=== PATIENT | male | born 1955 | race Caucasian/White ===

== ENCOUNTER 2017-05-20 14:24 | Observation (INO) | payer OTHER ==
[~2017-05-20] VITALS: Ht 175.3 cm; Wt 92.9 kg
--- NOTE | ~2017-05-20 | EKG ---
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1955 Requested By: Claudio Hernandez Order Number: [id number] MD: Juancarlos Jacobo Measurements Intervals [place] Rate: 47 P: 49 MD: 163 QRS: 47 QRSD: 104 T: 53 QT: 462 QTc: 409 Interpretive Statements Sinus bradycardia Low voltage, extremity leads Nonspecific ST segment abnormality No previous ECG available for comparison Electronically Signed On 05-21-2017 10:55:35 CDT by Juancarlos Jacobo [email or web address] <ELECTRONICALLY SIGNED> By: Juancarlos Jacobo MD, [facility] 05/21/17 1055 0628 0628 Juancarlos Jacobo MD, FACC /EPI
--- NOTE | ~2017-05-20 | EKG ---
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1955 Requested By: Denver Dominguez Order Number: [id number] MD: Juancarlos Jacobo Measurements Intervals [place] Rate: 54 P: 47 ND: 167 QRS: 37 QRSD: 91 T: 59 QT: 410 QTc: 389 Interpretive Statements Sinus bradycardia Low voltage, extremity leads Nonspecific ST segment abnormality No previous ECG available for comparison Electronically Signed On 05-21-2017 10:45:11 CDT by Juancarlos Jacobo [email or web address] <ELECTRONICALLY SIGNED> By: Juancarlos Jacobo MD, [facility] 05/21/17 1045 1425 1425 Juancarlos Jacobo MD, FACC /EPI
--- NOTE | ~2017-05-20 | EXE ---
[facility] [place] [address] STRESS ECHOCARDIOGRAM Name: SUSANA BOYD Room #: 203-P ADM IN M.R.#: [id number] Admission: 05/20/17 Attend Phys: Jacy Menchaca Discharge: Date of : 51 Date of Service: 05/21/17 [facility] Report #: [id number] THIS REPORT FOR: //name// APPROVED REPORT Exam: Stress Echocardiogram Indication: Chest pain Patient Location: Echo lab Stress Nurse: Ruchi Johnson RN Room #: 203 Status: routine Ht: 5 ft 9 in HR: 50 bpm BP: 126/78 mmHg Medical History Medical History: CAD s/p CABG, Diabetic Insulin, Hyperlipidemia Allergies: No known drug allergies Cardiac Risk Factors: HTN, Hyperlipidemia, DM, FHX of CAD, Smoking Previous Cardiac Procedures: CABGPCI Exercise History: Physically active Procedure The patient underwent an Exercise Stress Test using the Gunnar Protocol. Blood pressure, heart rate, and EKG were monitored. An Echocardiogram was performed by mechanical laboratory technician in four stages in quad fashion. At peak stress, four selected images were obtained and placed side by side with resting images for comparison. Stress Test Details Stress Test: Exercise stress testing was performed using a Gunnar protocol. HR Resting HR: 50 bpm Max Heart Rate (APMHR): 157 bpm Max HR Achieved: 110 bpm Target HR (85% APMHR): 133 bpm % of APMHR: 70 Recovery HR: 58 bpm HR response to stress: Blunted HR response to stress due to Beta pierre BP Resting BP: 126/78 mmHg Max BP: 130/70 mmHg [facility] [address] [place] [address] STRESS ECHOCARDIOGRAM Name: OLIVERSUSANA GAY Room #: 203-P [facility]#: [id number] Admission: 05/20/17 Attend Phys: Jacy Menchaca Discharge: Date of : 51 Date of Service: 05/21/17 1024 Report #: [id number] Recovery BP: 110/60 mmHg ECG Clinical Reason for Termination: Maximal effort Exercise duration: 12 min sec Highest Stage Achieved: Stage 4: 4.2 mph at 16% grade. Exercise capacity: 13.7 METs Overall Exercise Capacity for Age: Good Pre-Stress Echo The resting Echocardiogram showed normal left ventricular contractility with an estimated Ejection Fraction of about 55%. Post-Stress Echo The stress Echocardiogram showed normal left ventricular contractility with an estimated Ejection Fraction of about 65%. Clinical Normal augmentation of myocardial wall segments using a 17 segment model. Conclusion Clinical Response: Non-ischemic Exercise Capacity: Superior Stress ECG Response: Non-ischemic Stress Echo Images: Non-ischemic No prior study available for comparison. Other Information Study Quality: Adequate <ELECTRONICALLY SIGNED> By: Drew Cadet MD, FACC 05/21/17 1024 1024 1024 Drew Cadet MD, FACC /INF
--- NOTE | ~2017-05-20 | H ---
[facility] [place] [address] HISTORY AND PHYSICAL Name: SUSANA BOYD Room #: 203-P [facility] IN ..#: [id number] Admission: 05/20/17 Attend Phys: Claudio Hernandez MD Discharge: 05/21/17 Date of : 51 Report #: [id number] THIS REPORT FOR: //name// CC: Clark Hernandez MD DATE OF SERVICE: 05/20/2017 CHIEF COMPLAINT: Chest pain. HISTORY OF PRESENT ILLNESS: The patient is a 61-year-old male with history of coronary artery disease status post CABG in 2002, recent stent at [facility] 2 months ago, presented to the Emergency Room complaining of chest pain. Symptoms have been ongoing over the last 3 days. He has been on and off. He describes as a sharp pain just below his left breast with occasional radiation to his neck. He has been also with some mild shortness of breath. No dizziness. No fever or chills. No cough or expectoration. No lower extremity swelling. PAST MEDICAL HISTORY: Significant for coronary artery disease, CABG x 6 in 2002, stent in Spring 2016, diabetes and bilateral shoulder surgery. ALLERGIES: No known drug allergy. HOME MEDICATIONS: Reviewed, please look at the nursing documentation. SOCIAL HISTORY: He still smokes 1-1/2 packs per day. No history of alcohol abuse or illicit drug abuse. FAMILY HISTORY: Significant for hypertension and coronary artery disease. REVIEW OF SYSTEMS: CONSTITUTIONAL: No recent weight loss, weight gain. EYES: No change in vision. THROAT: Denies any sore throat. CARDIOVASCULAR: As above. RESPIRATORY: No cough or expectoration. GASTROINTESTINAL: No nausea, vomiting, abdominal pain. GENITOURINARY: No dysuria, hematuria. NEUROLOGIC: No focal numbness or weakness of the extremities. PSYCHIATRIC: No anxiety or depression. A 12-point review of system is negative other than the positive and negative dictated in the history of present illness and the review of system. [facility] [address] [place] [address] HISTORY AND PHYSICAL Name: SUSANA BOYD Minna Room #: 203-[facility] IN ..#: [id number] Admission: 05/20/17 Attend Phys: Claudio Hernandez MD Discharge: 05/21/17 Date of : 51 Report #: [id number] PHYSICAL EXAMINATION: VITAL SIGNS: Reveal blood pressure 104/70, heart rate of 50 per minute, afebrile. GENERAL: The patient is awake and alert, not in acute respiratory distress. EYES: Pupils equal, reactive to light, nonicteric conjunctivae. NECK: Supple, no JVD, no bruit, no lymphadenopathy. CARDIOVASCULAR SYSTEM: S1, S2, negative S3, no murmur. CHEST: Bilateral air entry present. Clear on auscultation. ABDOMEN: Soft, bowel sounds present, no mass, no organomegaly, no tenderness. PERIPHERY: No pedal edema. No calf tenderness. Dorsalis pedis 1+. NEUROLOGICAL: No gross motor or sensory deficit. LABORATORY DATA: Reviewed. EKG showed sinus rhythm, low voltage. Nonspecific ST segment T-wave changes. Troponin has been negative so far. White count is 5.8 and normal hemoglobin, hematocrit and platelets. His BUN and creatinine are 25 and 1.0. IMAGING: Chest x-ray showed no acute abnormality. ASSESSMENT AND PLAN: 1. Unstable angina. The patient will be treated with aspirin, Plavix and beta pierre and Lovenox. We will consult Cardiology. We will obtain echocardiogram. We will do serial troponin. We will check lipids in the morning. We will try to obtain records from [facility]. We will keep him n.p.o. after midnight if he needs any cardiac intervention. 2. Coronary artery disease status post coronary artery bypass graft, status post stent 2 months ago. 3. Dyslipidemia. We will check his lipids in the morning. 4. Deep venous thrombosis prophylaxis, on Lovenox. 5. Tobaccoism. The patient was strongly advised to stop smoking. Treatment plan has been explained to the patient in detail. <ELECTRONICALLY SIGNED> By: Claudio Hernandez MD 05/21/17 1320 26 46 Claudio Hernandez MD /nt
[2017-05-20 14:29] VITALS: BP 107/73
[2017-05-20] MEDS ORDERED: BISOPROLOL FUMAR5 MG PO (14:39)
[2017-05-20] MEDS ORDERED: GLYBURIDE 2.52.5 M1 PO (14:39)
[2017-05-20] MEDS ORDERED: CLOPIDOGREL75 MG PO (14:40)
[2017-05-20 14:58] LABS: ANION GAP 9 mmol/L (7-16); BUN 25 mg/dL (7-18); CALCIUM 8.7 mg/dL (8.5-10.1); CHLORIDE 104 mmol/L (98-107); CO2 27 mmol/L (21-32); GLUCOSE 127 mg/dL (74-106); POTASSIUM 4.1 mmol/L (3.5-5.1); SODIUM 140 mmol/L (136-145)
[2017-05-20 14:59] LABS: ABSOLUTE NEUTROPHILS 2.5 thou/uL (1.4-8.2); BASOPHILS 1.4 % (0.0-2.0); EOSINOPHILS 2.5 % (0.0-3.0); HEMATOCRIT 42.4 % (42.0-52.0); HEMOGLOBIN 14.5 gm/dL (14.0-18.0); LYMPHOCYTES 45.1 % (24.0-44.0); MCH 31.4 pg (26.0-34.0); MCHC 34.3 g/dL (28.0-37.0); MCV 91.7 fL (80.0-100.0); MONOCYTES 8.2 % (1.0-8.0); PLATELET COUNT 205 thou/uL (150-400); POLYS 42.8 % (36.0-66.0); RBC 4.62 mil/uL (4.50-6.00); RDW 12.9 % (10.5-14.5); WBC 5.8 thou/uL (4.0-11.0)
[2017-05-20 15:06] LABS: MANUAL DIFF NO
[2017-05-20 15:11] LABS: TROPONIN-I < 0.04 ng/mL (<0.04-0.07)
[2017-05-20 18:07] VITALS: BP 104/73
[2017-05-20 20:48] VITALS: BP 103/63
[2017-05-20] MEDS ORDERED: ASPIR-TRIN325 MG PO (22:16)
[2017-05-20] MEDS ORDERED: VITAMIN C500 M1 PO (22:16)
[2017-05-20] MEDS ORDERED: ATORVASTATIN CA40 MG PO (22:17)
[2017-05-20] MEDS ORDERED: NEXIUM40 MG PO (22:17)
[2017-05-20] MEDS ORDERED: TRICOR145 MG PO (22:18)
[2017-05-20] MEDS ORDERED: ZETIA10 MG PO (22:18)
[2017-05-20] MEDS ORDERED: IBUPROFEN 800800 M1 PO (22:19)
[2017-05-20] MEDS ORDERED: ISOSORBIDE MONO60 M1 PO (22:20)
[2017-05-20] MEDS ORDERED: LISINOPRIL5 MG PO (22:21)
[2017-05-20] MEDS ORDERED: ATIVAN1 MG PO (22:21)
[2017-05-20] MEDS ORDERED: NITROGLYCERIN0.4 MG SUBLING (22:22)
[2017-05-20] MEDS ORDERED: XARELTO20 MG PO (22:23)
[2017-05-20] MEDS ORDERED: OMEGA-31000 M1 PO (22:23)
[2017-05-20] MEDS ORDERED: FLOMAX0.4 MG PO (22:24)
[2017-05-20] MEDS ORDERED: VENLAFAXIN75 MG/1 T2 PO (22:25)
[2017-05-20 23:28] VITALS: BP 97/63
[2017-05-21 05:05] VITALS: BP 110/66
[2017-05-21 06:17] LABS: ABSOLUTE NEUTROPHILS 2.4 thou/uL (1.4-8.2); BASOPHILS 1.3 % (0.0-2.0); EOSINOPHILS 3.3 % (0.0-3.0); HEMOGLOBIN 15.2 gm/dL (14.0-18.0); LYMPHOCYTES 44.5 % (24.0-44.0); MCH 31.8 pg (26.0-34.0); MCHC 34.7 g/dL (28.0-37.0); MCV 91.7 fL (80.0-100.0); MONOCYTES 7.9 % (1.0-8.0); PLATELET COUNT 186 thou/uL (150-400); RBC 4.79 mil/uL (4.50-6.00); RDW 12.8 % (10.5-14.5); WBC 5.5 thou/uL (4.0-11.0)
[2017-05-21 06:19] LABS: MANUAL DIFF NO
[2017-05-21 06:34] LABS: ANION GAP 7 mmol/L (7-16); BUN 22 mg/dL (7-18); CALCIUM 8.8 mg/dL (8.5-10.1); CHLORIDE 105 mmol/L (98-107); CHOLESTEROL 144 mg/dL (<200); CO2 28 mmol/L (21-32); GLUCOSE 103 mg/dL (74-106); HDL CHOLESTEROL 40 mg/dL (>40); LDL CHOLESTEROL 80 mg/dL (<100); MAGNESIUM 2.1 mg/dL (1.8-2.4); POTASSIUM 4.4 mmol/L (3.5-5.1); SERUM ASSESSMENT Clear; SODIUM 140 mmol/L (136-145); TC:HDL 3.6 Ratio (Not establshd); TRIGLYCERIDE 123 mg/dL (<150); TROPONIN-I < 0.04 ng/mL (<0.04-0.07); VLDL 25 mg/dL (<40)
[2017-05-21 07:30] VITALS: BP 104/68
[2017-05-21 10:30] VITALS: BP 104/68
[2017-05-21 11:41] VITALS: BP 104/68
[2017-05-22 05:08] LABS: GLYCOHEMOGLOBIN (HGB A1C) 5.9 % (4.8-5.6)
== END 2017-05-21 11:00 | disposition home or self-care (01) ==
LOC: ER 14:24 → EROBS 17:36 → 2N 17:36
PROVIDERS: Emergency Medicine; Internal Medicine
DX: I25.110 Atherosclerotic heart disease of native coronary artery with unstable angina pectoris (principal); I10 Essential (primary) hypertension; E78.5 Hyperlipidemia, unspecified; E11.9 Type 2 diabetes mellitus without complications; Z95.5 Presence of coronary angioplasty implant and graft; Z71.6 Tobacco abuse counseling; Z72.89 Other problems related to lifestyle
CPT/HCPCS: 10194